=== PATIENT | female | born 1975 | race Caucasian/White ===

== ENCOUNTER 2021-05-14 14:03 | Emergency (ER) | payer BC ==
[2021-05-14] MEDS ORDERED: Lorazepam 1 MG TAB ONE (16:06)
[2021-05-14] MEDS ORDERED: Dexamethasone 10 MG/ML VIAL ONE (16:06)
[2021-05-14] MEDS ORDERED: Cyclobenzaprine 10 MG TAB ONE (16:13)
[2021-05-14] MEDS ORDERED: Lidocaine 5% Patch TD SCH (17:00)
[2021-05-14] MEDS ORDERED: Morphine 4 MG/ML VIAL ONE (17:12)
== END 2021-05-14 18:35 | disposition home or self-care (01) ==
LOC: CSHERS 14:03
DX: M54.32 Sciatica, left side (principal)
CPT/HCPCS: 96372; 99283; J1100; J2270

== ENCOUNTER 2021-05-24 15:55 | Outpatient (CLI) | payer BC | END 2021-05-24 15:56 | disposition home or self-care (01) | LOC: CSHMRI 15:55 | PROVIDERS: ATTEND Orthopaedic Surgery | DX: M54.32 Sciatica, left side (principal); M53.9 Dorsopathy, unspecified; M51.27 Other intervertebral disc displacement, lumbosacral region | CPT/HCPCS: 72148 ==